=== PATIENT | female | born 1970 | race Two or more races ===

== ENCOUNTER → 2017-03-03 | Outpatient (CLI) | payer OTHER ==
--- NOTE | ~2017-03-03 | MY11 ---
[facility] A Service of [facility] RADIOLOGY TEXT RESULTS PATIENT: BALTA MALONE LOCATION: [facility] : 66 UNIT #: [id number] AGE: [address]: ERASTO SORTO APRN SEX: F ORDER DR: [id number] [facility] [address] [place], [place] [address] [id number] O MR#: [id number] Acc #: [id number] NAME: BALTA MALONE : 1970 SEX: F STUDY DATE/TIME: 03/03/2017 14:26 UNIT: [facility] ROOM: STUDY DESCRIPTION: MY Mammogram Screening Dig Gabriele Attending Physician: Mariah Sorto M.D. Referring Physician: Mariah Sorto M.D. Ordering Physician: Mariah Sorto M.D. Primary Care Physician: Irwin Garcia M.D. MEDICAL IMAGING REPORT This report is preliminary unless electronic signature is present EXAM Digital screening mammogram, 03/03/2017, [facility]. HISTORY 47-year-old woman, no risk elevation. Prior mammograms [facility] and [facility]. COMPARISON None. TECHNIQUE Digital imaging of each breast was completed utilizing screening protocol. Review includes FDA-approved CAD device. FINDINGS Digital imaging of each breast was completed utilizing screening protocol. Review includes FDA-approved CAD device. Breast is extremely dense with macrocysts throughout both breasts. This pattern reduces the sensitivity of conventional mammography. Digital tomosynthesis should be added to this patient's annual screening exam. I see no suspicious mass characteristics. There are no suspicious microcalcifications and no visualized architectural disturbance. IMPRESSION Benign mammogram. Pronounced macrocystic mastopathy. Strongly recommend adding digital tomosynthesis to this patient's annual screening protocol. Patients over the age of 40 are entered into a reminder system with target due date for the next mammogram. A result letter will also be sent to the patient. BIRADS: 2 Benign findings. [facility] A Service of [facility] RADIOLOGY TEXT RESULTS PATIENT: BALTA MALONE LOCATION: [facility] #: [id number] : 66 UNIT #: [id number] AGE: [address]: ERASTO SORTO APRN SEX: F ORDER DR: Dictated by... Mir Fuentes M.D. THIS IS AN ELECTRONICALLY VERIFIED REPORT Mir Fuentes M.D. at 03/04/2017 8:10 AM TEMI/christie TD: 03/03/2017 21:10 JOB #: [id number] MEDICAL IMAGING REPORT Page 1 of 1 COPY
== END | disposition home or self-care (01) ==
LOC: CWCC 14:11
DX: Z12.31 Encounter for screening mammogram for malignant neoplasm of breast (principal); N64.89 Other specified disorders of breast
CPT/HCPCS: G0202